=== PATIENT | female | born 1990 | race Caucasian/White ===

== ENCOUNTER 2016-09-04 14:52 | Inpatient (IN) ==
[2016-09-04 16:08] LABS: URINE SOURCE VOIDED
[2016-09-04 16:14] LABS: BILIRUBIN URINE NEGATIVE (NEGATIVE); BLOOD URINE NEGATIVE (NEGATIVE); CLARITY CLEAR (CLEAR); COLOR YELLOW; GLUCOSE URINE NEGATIVE (NEGATIVE); LEUKOCYTES URINE TRACE (NEGATIVE); NITRITE URINE NEGATIVE (NEGATIVE); PROTEIN URINE NEGATIVE (NEGATIVE); SP GRAVITY URINE 1.015; UROBILINOGEN URINE NORMAL
[2016-09-04] MEDS ORDERED: LR 1,000 ML IV SCH (16:31)
[2016-09-04] MEDS ORDERED: STADOL IV ONE (16:32)
[2016-09-04] MEDS ORDERED: STADOL IV PRN (18:00)
[2016-09-04] MEDS ORDERED: PITOCIN 30 UNITS/LR 30 UNITS/500 ML IV.SOLN IV SCH (18:00)
[2016-09-04] MEDS ORDERED: TYLENOL PO PRN (18:00)
[2016-09-04] MEDS ORDERED: KEFZOL 1 GM/D5W 1 GM/50 ML IVPB IV PRN (18:00)
[2016-09-04] MEDS ORDERED: PEPCID PO ONE (18:00)
[2016-09-04] MEDS ORDERED: SODIUM CHLORIDE 0.9% INJ SCH (18:00)
[2016-09-04] MEDS ORDERED: AMPICILLIN 2 GM/NS 2 GM/100 ML IVPB IV ONE (18:00)
[2016-09-04] MEDS ORDERED: PEPCID PO PRN (18:00)
[2016-09-04] MEDS ORDERED: PEPCID IV PRN (18:00)
[2016-09-04] MEDS ORDERED: ZOFRAN IV PRN (18:00)
[2016-09-04] MEDS ORDERED: REGLAN PO ONE (18:00)
[2016-09-04] MEDS ORDERED: FENTANYL-BUPIV-NS 2 MCG-0.1% 200 ML EPIDURAL PRN (18:05)
[2016-09-04 18:09] LABS: MANUAL DIFF NEEDED? NO
[2016-09-04] MEDS: LR 1,000 ML IV SCH ×2 (18:10→18:15)
[2016-09-04 18:11] LABS: BASO% 0.1 % (0.0-0.8); EOS# 0.06 X1000 (0.0-0.7); EOS% 0.5 % (0.0-10.0); HEMATOCRIT 36.6 % (37.0-47.0); HEMOGLOBIN 12.7 g/dL (12.0-16.0); IMM GRAN# 0.06 X1000 (0.0-0.04); IMM GRAN% 0.5 % (0.0-0.5); LYMPH# 1.71 X1000 (1.2-3.4); LYMPH% 15.3 % (20.5-51.1); MCH 29.5 PG (27-31); MCHC 34.7 g/dL (33-37); MCV 85.1 FL (81-99); MONO# 0.82 X1000 (0.11-0.59); MONO% 7.3 % (1.7-9.3); MPV 12.6 FL (7.4-10.4); NEUT% 76.3 % (42.2-75.2); PLT 168 X1000 (130-400)
[2016-09-04] MEDS ORDERED: XYLOCAINE-MPF 2% ONE (18:39)
[2016-09-04] MEDS ORDERED: BOOSTRIX VACCINE IM ONE (18:56)
[2016-09-04] MEDS ORDERED: XYLOCAINE-MPF 1% INJ PRN (18:56)
[2016-09-04] MEDS ORDERED: BENADRYL IV PRN (18:56)
[2016-09-04] MEDS ORDERED: HYDROXYZINE PO PRN (18:56)
[2016-09-04] MEDS ORDERED: M-M-R II VACCINE SUBQ ONE (18:56)
[2016-09-04] MEDS ORDERED: BENADRYL PO PRN (18:56)
[2016-09-04] MEDS ORDERED: AMBIEN PO PRN (18:56)
[2016-09-04] MEDS ORDERED: PERI MEDS (DERMOPLAST/NUPERCAINAL/TUCKS) MISC PRN (18:56)
[2016-09-04] MEDS ORDERED: PITOCIN 30 UNITS/LR 30 UNITS/500 ML IV.SOLN IV ONE (18:56)
[2016-09-04] MEDS ORDERED: MINERAL OIL PO PRN (18:56)
[2016-09-04] MEDS ORDERED: NORCO-5 PO PRN (18:56)
[2016-09-04] MEDS ORDERED: CYTOTEC PO PRN (18:56)
[2016-09-04] MEDS ORDERED: PITOCIN IM PRN (18:56)
[2016-09-04] MEDS ORDERED: PITOCIN 20 UNITS/LR 20 UNITS/1,000 ML IV.SOLN IV SCH (18:56)
[2016-09-04] MEDS ORDERED: HYDROXYZINE IM PRN (18:56)
[2016-09-04] MEDS ORDERED: PERICOLACE PO SCH (21:00)
[2016-09-04] MEDS: MOTRIN PO PRN (21:28)
[2016-09-04] MEDS ORDERED: AMPICILLIN 1 GM/NS 1 GM/50 ML IVPB IV SCH (22:01)
[2016-09-05] MEDS: NORCO-10 PO PRN ×3 (06:00→23:01)
[2016-09-05] MEDS: MOTRIN PO PRN ×3 (06:00→23:01)
[2016-09-05 06:19] LABS: HEMATOCRIT 31.7 % (37.0-47.0); HEMOGLOBIN 10.4 g/dL (12.0-16.0); MCH 28.6 PG (27-31); MCHC 32.8 g/dL (33-37); MCV 87.1 FL (81-99); MPV 11.9 FL (7.4-10.4); RBC 3.64 XMIL (4.2-5.4)
[2016-09-06] MEDS: MOTRIN PO PRN (07:37)
[2016-09-06 08:06] VITALS: BP 133/66
[2016-09-06] MEDS: NORCO-10 PO PRN (08:55)
--- NOTE | 2016-09-06 15:41 | OPERATIVE NOTE ---
PROCEDURE DATE: DESCRIPTION OF PROCEDURE: Patient underwent sterile controlled spontaneous vaginal delivery of a viable female . No nuchal cord. No dystocia. Cord doubly clamped and cut, and handed off to the waiting pediatric staff. The placenta delivered spontaneously and intact. Uterus firm with Pitocin and massage. Uterus, cervix and vagina explored. No lacerations noted. ESTIMATED BLOOD LOSS: 200 mL. COMPLICATIONS: None. cc: Tracey Palacio MD
== END 2016-09-06 13:10 | disposition home or self-care (01) ==
LOC: P.OPLD 14:52 → P.LD 15:18
PROVIDERS: ADMIT Obstetrics & Gynecology; ATTEND Obstetrics & Gynecology